=== PATIENT | male | born 1985 | race Caucasian/White ===

== ENCOUNTER 2017-02-15 18:44 | Emergency (ER) | payer SELFPAY ==
[~2017-02-15] VITALS: Ht 185.4 cm; Wt 76.2 kg
[2017-02-15 18:54] VITALS: BP 151/86
[2017-02-15] MEDS ORDERED: DIPH,PERTUSS(ACELL),TET VAC/PF 0.5 ML IM-VACC ONE ×2 (20:00→20:01)
[2017-02-15] MEDS ORDERED: LIDOCAINE 1%, 20ML INFIL ONE (20:00)
[2017-02-15] MEDS ORDERED: LIDOCAINE 1%, 20ML ONE (20:01)
== END 2017-02-15 21:39 | disposition home or self-care (01) ==
LOC: ED 21:25
DX: S01.511A Laceration without foreign body of lip, initial encounter (principal); F12.90 Cannabis use, unspecified, uncomplicated; Y04.8XXA Assault by other bodily force, initial encounter; Y93.89 Activity, other specified; Y92.410 Unspecified street and highway as the place of occurrence of the external cause; Y99.8 Other external cause status
CPT/HCPCS: 13151; 70450; 70486; 90471; 90715

== ENCOUNTER 2017-03-01 11:23 | Emergency (ER) | payer SELFPAY | END 2017-03-01 11:46 | disposition left against medical advice (07) | LOC: ED 11:40 | DX: M79.642 Pain in left hand (principal); Z53.21 Procedure and treatment not carried out due to patient leaving prior to being seen by health care provider ==

== ENCOUNTER 2017-08-19 00:28 | Emergency (ER) | payer SELFPAY ==
[~2017-08-19] VITALS: Ht 182.9 cm; Wt 72.7 kg
[2017-08-19] MEDS ORDERED: ACETAMINOPHEN 325 MG TABLET PO ONE (02:00)
[2017-08-19] MEDS ORDERED: ACETAMINOPHEN 325 MG TABLET ONE (03:47)
[2017-08-19 05:00] VITALS: BP 107/71
== END 2017-08-19 05:03 | disposition home or self-care (01) ==
LOC: ED 04:57
DX: S76.011A Strain of muscle, fascia and tendon of right hip, initial encounter (principal); X58.XXXA Exposure to other specified factors, initial encounter; Y93.89 Activity, other specified; Y92.89 Other specified places as the place of occurrence of the external cause; Y99.8 Other external cause status
CPT/HCPCS: 99284

== ENCOUNTER 2017-08-19 19:03 | Emergency (ER) | payer SELFPAY ==
[~2017-08-19] VITALS: Ht 177.8 cm; Wt 68.0 kg
[2017-08-19 19:27] VITALS: BP 121/70
== END 2017-08-19 21:23 ==
LOC: ED 20:50
DX: M25.551 Pain in right hip (principal); Z59.0 Homelessness
CPT/HCPCS: 99283

== ENCOUNTER 2017-09-02 10:07 | Emergency (ER) | payer SELFPAY | END 2017-09-02 10:39 | disposition left against medical advice (07) | LOC: ED 10:33 | DX: Z00.00 Encounter for general adult medical examination without abnormal findings (principal) | CPT/HCPCS: 99281 ==

== ENCOUNTER 2020-10-09 16:03 | Emergency (ER) | payer MEDICAID ==
[~2020-10-09] VITALS: Ht 185.4 cm; Wt 77.0 kg
[2020-10-09 20:09] VITALS: BP 138/89
--- NOTE | 2020-10-09 20:10 | NUR ---
PT SITTING UP IN CHAIR, NAD, APPEARS COMFORTABLE, CALL LIGHT ON LAP, EAR IRRIGATED AND ROCK REMOVED. PT REPORTS COMING IN FOR A ROCK IN HIS EARS FOR A FEW DAYS, PT DENIES KNOWING WHEN HE PUT IT IN THERE. DENIES ADDITIONAL QUESTIONS OR NEEDS AT THIS TIME. WCTM. PT TO BE DC'D
--- NOTE | 2020-10-09 20:20 | NUR ---
PT ELOPED PRIOR TO RECEIVING DC INSTRUCTIONS. INSTRUCTIONS LEFT AT CHARGE DESK IN CASE PT RETURNS.
== END 2020-10-09 20:22 | disposition left against medical advice (07) ==
LOC: ED 19:58
DX: S00.452A Superficial foreign body of left ear, initial encounter (principal); H60.12 Cellulitis of left external ear; F17.210 Nicotine dependence, cigarettes, uncomplicated; Z72.9 Problem related to lifestyle, unspecified; X58.XXXA Exposure to other specified factors, initial encounter; Y93.89 Activity, other specified; Y92.89 Other specified places as the place of occurrence of the external cause; Y99.8 Other external cause status
CPT/HCPCS: 99283; 99406

== ENCOUNTER 2021-05-03 17:56 | Emergency (ER) | payer MEDICAID ==
[~2021-05-03] VITALS: Ht 182.9 cm; Wt 80.0 kg
[2021-05-03 18:20] VITALS: BP 167/96
--- NOTE | 2021-05-03 20:47 | NUR ---
NOT IN LOBBY WHEN CALLED FOR ROOM.
--- NOTE | 2021-05-03 21:13 | NUR ---
NOT IN LOBBY WHEN CALLED FOR ROOM.
--- NOTE | 2021-05-03 21:26 | NUR ---
NOT IN LOBBY WHEN CALLED FOR ROOM. 3RD TIME
== END 2021-05-03 21:27 | disposition left against medical advice (07) ==
LOC: ED 21:00
DX: T16.2XXA Foreign body in left ear, initial encounter (principal); X58.XXXA Exposure to other specified factors, initial encounter; Y93.89 Activity, other specified; Y92.89 Other specified places as the place of occurrence of the external cause; Y99.8 Other external cause status
CPT/HCPCS: 99281; 99282

== ENCOUNTER 2021-05-11 14:00 | Emergency (ER) | payer MEDICAID ==
[~2021-05-11] VITALS: Ht 185.4 cm; Wt 75.0 kg
[2021-05-11 14:03] VITALS: BP 161/95
--- NOTE | 2021-05-11 15:30 | NUR ---
CHARGE RNl:PT AMB AT DESK, "I'M READY TO LEAVE NOW" PT LEFT AMB.
--- NOTE | 2021-05-11 15:31 | NUR ---
PT HAS FB IN EAR. PT REFUSING TO LET STAFF IRRIGATE EAR OR RETRIEVE FB TO LEFT EAR. PT ELOPED
== END 2021-05-11 15:33 | disposition left against medical advice (07) ==
LOC: ED 15:26
DX: T16.2XXA Foreign body in left ear, initial encounter (principal); X58.XXXA Exposure to other specified factors, initial encounter; Y93.89 Activity, other specified; Y92.89 Other specified places as the place of occurrence of the external cause; Y99.8 Other external cause status
CPT/HCPCS: 99281

== ENCOUNTER 2021-06-09 04:36 | Emergency (ER) | payer MEDICAID ==
[~2021-06-09] VITALS: Ht 170.2 cm; Wt 55.0 kg
--- NOTE | 2021-06-09 04:48 | NUR ---
BIB [facility], PT WAS FOUND DOWN AND UNRESPONSIVE IN A CHARLIE-POTTY WITH A GLUCOSE OF 37. PT WAS RESPONSIVE TO PAIN ONLY. EMS GAVE IV D10 AND BLOOD GLUCOSE IMPROVED TO THE 60S. UPON ARRIVAL TO ER PT BECAME RESPONSIVE. ABLE TO GIVE HIS NAME AND ORIENTED X 4. GCS 15. PT IN URINE SOAKED CLOTHES, MALODOROUS. REQUESTING A MEAL.
--- NOTE | 2021-06-09 05:44 | NUR ---
PT PROVIDED FULL MEAL FROM [employer] PER PT REQUEST.
--- NOTE | 2021-06-09 06:16 | NUR ---
lab traveling phlebotomist and my self unable to obtain labs. caryn from lab says she will come down and try.
--- NOTE | 2021-06-09 06:42 | NUR ---
LAUREN SUCCESSFULLY [facility] LABS
--- NOTE | 2021-06-09 06:43 | NUR ---
PT REQUESTING MORE FOOD
--- NOTE | 2021-06-09 06:52 | NUR ---
REPORT FLAKITA FIGUEROA RN. ORDERED PT MORE FOOD. ORIENTED TO SELF/PLACE/TIME, FORGETFUL TO EVENT. REMINDED.
[2021-06-09 06:55] LABS: BASOPHILS % (AUTO) 1 % (0-1); EOSINOPHILS % (AUTO) 0 % (1-7); LYMPHOCYTES % (AUTO) 6 % (22-44); MEAN CORPUSCULAR HEMOGLOBIN 31.3 pg (27.5-34.5); MEAN CORPUSCULAR HGB CONC 34.2 g/dL (33.2-36.2); MEAN PLATELET VOLUME 8.5 fL (7.4-10.4); MONOCYTES % (AUTO) 4 % (2-9); NEUTROPHILS % (AUTO) 89 % (42-75); PLATELET COUNT 230 x10^3/uL (130-400); RED BLOOD COUNT 4.95 x10^6/uL (4.38-5.82); RED CELL DISTRIBUTION WIDTH 13.3 % (9.4-14.8)
[2021-06-09 07:02] LABS: ALANINE AMINOTRANSFERASE 21 U/L (12-78); ALBUMIN 3.5 g/dL (3.4-5.0); ANION GAP 3 mmol/L (5-15); CALCIUM 9.3 mg/dL (8.5-10.1); CHLORIDE 102 mmol/L (98-107); CREATININE 1.04 mg/dL (0.7-1.3)
[2021-06-09 07:04] LABS: ALKALINE PHOSPHATASE 81 U/L (45-117); BILIRUBIN,TOTAL 0.9 mg/dL (0.2-1.0); TOTAL PROTEIN 6.9 g/dL (6.4-8.2)
--- NOTE | 2021-06-09 07:47 | NUR ---
PT EATING. VSS. LABS BACK.
[2021-06-09 08:35] VITALS: BP 132/71
--- NOTE | 2021-06-09 09:16 | NUR ---
pt given second meal tray and dc papers. pt became angry that he was being dc'd. locked himself in the bathroom talking to himself very fast and mimicking this rn. security called. escorted out by security. as
== END 2021-06-09 09:18 | disposition home or self-care (01) ==
LOC: ED 07:51
DX: E16.2 Hypoglycemia, unspecified (principal); Z72.9 Problem related to lifestyle, unspecified; F17.200 Nicotine dependence, unspecified, uncomplicated
CPT/HCPCS: 80053; 80320; 82962; 85025; 99283; G0480